=== PATIENT | male | born 1955 | race Caucasian/White ===

== ENCOUNTER → 2017-04-10 | Outpatient (CLI) | payer OTHER ==
[~2017-04-10] MED LIST: BENADRYL25 MG PO; COCONUT OIL1000 MG PO; FISH OIL 1,001000 M2 PO; GLUCOSAMINE &1 EACH PO; GLUCOSAMINE1000 MG PO; NASACORT10.8 ML NS; PEPCID20 MG PO; TURMERIC500 M2 PO
== END ==
LOC: RAD 13:39
DX: R05 Cough (principal)

== ENCOUNTER → 2017-12-07 | Outpatient (CLI) | payer OTHER | LOC: RAD 11:02 | DX: R05 Cough (principal) ==

== ENCOUNTER → 2017-12-13 | Outpatient (CLI) | payer OTHER | LOC: CAT 11:11 | DX: K76.9 Liver disease, unspecified (principal) ==

== ENCOUNTER → 2018-10-17 | Outpatient (CLI) | payer OTHER | LOC: MRI 14:42 | DX: M19.011 Primary osteoarthritis, right shoulder (principal); M25.411 Effusion, right shoulder ==

== ENCOUNTER 2018-11-13 05:39 | Day surgery (SDC) | payer OTHER ==
[~2018-11-13] VITALS: Ht 177.8 cm; Wt 83.9 kg
[~2018-11-13 05:39] MED LIST changes: +NAPROSYN500 MG PO; +PROTONIX 20 MG20 M1 PO
[2018-11-13 06:53] VITALS: BP 130/71
[2018-11-13 09:21] VITALS: BP 130/71
--- NOTE | 2018-11-15 09:02 | O ---
[facility] [address] [place] [address] OPERATIVE REPORT Name: HOMARESEQUIEL Santiago Room #: [facility] David#: [id number] Admission: 11/13/18 Attend Phys: Osman Lawson Discharge: 11/13/18 Date of : 55 Report #: [id number] THIS REPORT FOR: //name// CC: Osman Olsen DATE OF SERVICE: 11/13/2018 PREOPERATIVE DIAGNOSES: Right shoulder pain, rotator cuff tear, impingement syndrome, biceps tendinopathy. POSTOPERATIVE DIAGNOSES: Right shoulder rotator cuff tear, medium size, complex labral tear, intraarticular synovitis, long head of the biceps tendon subluxation, subacromial bursitis with impingement syndrome. PROCEDURE PERFORMED: Right shoulder arthroscopy, rotator cuff repair, subacromial decompression, extensive debridement, arthroscopic biceps tenodesis. SURGEON: Osman Collins M.D. DELPHI PROGRAMMER: Fidelia Howard PA-C. ANESTHESIA: General with preoperative ultrasound-guided interscalene block. FLUIDS: 1500 mL crystalloid. ESTIMATED BLOOD LOSS: Negligible. DESCRIPTION OF PROCEDURE: After proper identification of the patient and operative site in preoperative holding area, the operative site was signed by myself. Prophylactic antibiotics given. The patient elected to receive an ultrasound-guided block after reviewing the risks, benefits, alternatives and potential complications with Dr. Hernandez. After a satisfactory block, the patient was brought back to the operative suite after induction of satisfactory general anesthesia, the patient's right shoulder was examined. It was stable throughout a full arc of motion comparable to the preoperative assessment. The patient was carefully positioned in the left lateral decubitus position. Pierre bag and axillary roll were utilized to support the torso. The right shoulder was sterilely prepped and draped in the usual manner and placed in 10 pounds of balanced arthroscopic suspension. Posterior portal was established, joint was inflated with an arthroscopic pump set at 40 mmHg. Anterior superior portal was created using a spinal needle for localization. Examination of the glenohumeral joint revealed some complex labral fraying and tearing, this was near circumferential in nature. There was unstable superior labrum with its biceps attachment. There was mild subluxation of the biceps tendon on the upper border of the subscapularis without any evidence of tearing of the subscapularis was [address] [address] OPERATIVE REPORT Name: ESEQUIEL GRAF Room #: [facility] David#: [id number] Admission: 11/13/18 Attend Phys: Osman Lawson Discharge: 11/13/18 Date of : 55 Report #: [id number] noted. Minimal degenerative change was noted of the chondral surface. There was evidence of a full thickness minimally retracted rotator cuff tear with extensive articular-sided fraying and tearing, rotator cuff was debrided from the articular surface as well as labrum. Greater tuberosity was prepared from the articular side as best as possible. Tendon grasping stitch was placed on the biceps. It was released off the superior labrum, which was then carefully debrided with motorized shaver. Arthroscope was introduced in the subacromial space where thickened subacromial bursa was encountered. This was resected for visualization purposes. There was fraying on the undersurface of the coracoacromial arch. CA ligament was released, but not resected off the anterolateral acromion and prominence to the acromion was removed using motorized bur. Approximately 2-3 mm of bone was resected here. The patient had a crescent shaped minimally retracted tear of the rotator cuff. Some peripheral calcifications are noted on the tendon. Frayed portion of the tendon was carefully debrided. Combination of hand and motorized instrumentation was used to prepare the greater tuberosity. A single 4.75 mm Arthrex SwiveLock anchor that was double loaded with #2 FiberWire was placed into its pretapped hole that had good bone purchase. Sutures were passed in a horizontal mattress fashion, tied with locking sliding knots backed up with alternating half hitches and a second anchor more laterally based was utilized creating a double row construct. Lateral portion of the bicipital groove was opened. Tendon was delivered out the anterolateral portal. Whipstitch was placed. Free end was trimmed. It was secured using an Arthrex proximal biceps tenodesis button. Sutures were tied, it was stable to probing. Subacromial space thoroughly irrigated with normal saline. Portals closed with simple nylon stitch. Sterile dressing was applied. The patient will be immobilized in a sling and abduction pillow for 6 weeks postoperatively. Qualified sales assistant entertainment and media utilized throughout the entire procedure to aid in patient limb positioning, visualization with arthroscope instrument and suture passage as well as closure and sling application. The patient was also asked preoperatively about his acromioclavicular joint and he was having minimal symptoms about this and did not want a distal clavicle excision now performed. <ELECTRONICALLY SIGNED> By: Osman Collins MD 11/15/18 [id number] Osman Collins MD /nt
== END 2018-11-13 10:25 | disposition home or self-care (01) ==
LOC: OR 05:39 → TBA 05:39 → OR 10:25
DX: M25.511 Pain in right shoulder (principal); M75.101 Unspecified rotator cuff tear or rupture of right shoulder, not specified as traumatic; M75.41 Impingement syndrome of right shoulder; S43.491A Other sprain of right shoulder joint, initial encounter; M65.811 Other synovitis and tenosynovitis, right shoulder; S46.291A Other injury of muscle, fascia and tendon of other parts of biceps, right arm, initial encounter; M75.51 Bursitis of right shoulder; Z85.46 Personal history of malignant neoplasm of prostate; Z85.828 Personal history of other malignant neoplasm of skin; Z87.19 Personal history of other diseases of the digestive system; Z98.890 Other specified postprocedural states; Z79.899 Other long term (current) drug therapy; X58.XXXA Exposure to other specified factors, initial encounter; Y93.89 Activity, other specified; Y92.89 Other specified places as the place of occurrence of the external cause; Y99.8 Other external cause status
CPT/HCPCS: 50010; 50101; 50172; 50386; 50417; 50597; 50935; 50950; 51038; 51445; 51847; 53610; 54170; 55430; 56525; 56527; 56530; 57103; 62110; 62900; 64039; 70005